=== PATIENT | male | born 2000 | race Caucasian/White ===

== ENCOUNTER 2022-06-03 15:47 | Emergency (ER) | payer SELFPAY ==
[2022-06-03] MEDS ORDERED: Ibuprofen 200 MG TAB ONE (16:57)
== END 2022-06-03 17:05 | disposition home or self-care (01) ==
LOC: CSHERS 15:47
DX: B34.9 Viral infection, unspecified (principal); Z20.822 Contact with and (suspected) exposure to COVID-19
CPT/HCPCS: 99283; U0003; U0005